=== PATIENT | male | born 1955 | race Caucasian/White ===

== ENCOUNTER 2016-09-07 13:34 | Emergency (ER) | payer OTHER ==
--- NOTE | 2016-09-07 16:37 | ED CLINICAL REPORT ---
Clinical Report - Physicians/Mid Levels [facility] [address] [place] [address] 09/07/2016 13:36 Patient: BOB HALL Time Seen: 13:54 Sep 07 2016. Arrived- By private vehicle. Historian- patient. CPT: ER phys charges level 4 (#[id number]). HISTORY OF PRESENT ILLNESS Chief Complaint: ABDOMINAL PAIN and DIARRHEA. At its maximum, severity described as moderate. When seen in the E.D., severity described as moderate. Modifying factors- worsened by movement. Relieved by rest. It is described as "pain" and it is described as located in the right lower quadrant. 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 No nausea, loss of appetite or vomiting. He has had diarrhea. No recent travel. Similar symptoms previously: None. Recent medical care: Not recently seen/assessed. REVIEW OF SYSTEMS No constipation, black stools, hematemesis, difficulty with urination or pain with urination. No urinary frequency, fever, sore throat, chest pain or difficulty breathing. No cough, joint pain, skin rash, chills or back pain. All systems otherwise negative, except as recorded above. PAST HISTORY Constipation [Active]. Hypertension. Congestive Heart Failure. Sleep Apnea. Kidney failure. Atrial Fibrillation. Diabetes Mellitus. Additional Surgeries: Hernia Repair. Testicle removal. SOCIAL HISTORY Former smoker. ADDITIONAL NOTES The nursing notes have been reviewed. PHYSICAL EXAM Vital Signs: 09/07/2016 13:52 BP: 126/82. HR: 109. RR: 20. O2 saturation: 94%. Temp: 98.9 F. Pain level now: 2/10. Appearance: Alert. No acute distress. Eyes: Eyes normal inspection. ENT: Pharynx normal. Neck: Normal inspection. CVS: Normal heart rate and rhythm. Heart sounds normal. Pulses normal. Respiratory: No respiratory distress. Breath sounds normal. Chest nontender. Abdomen: Tenderness in the right side of the abdomen and right lower quadrant. Bowel sounds normal. Severely obese. Back: Normal inspection. Skin: Skin warm. Normal skin color. No rash. Extremities: Extremities exhibit normal ROM. No lower extremity edema. Neuro: Oriented X 3. No motor deficit. No sensory deficit. Reflexes normal. LABS, X-RAYS, AND EKG Laboratory Tests: UA-Culture if indicated: (FAIZA: 09/07/2016 15:00) ( [facility] 09/07/2016 15:36) Final results Test Result Flag Units (Reference) URINE COLOR YELLOW URINE APPEARANCE CLEAR URINE GLUCOSE NEGATIVE (NEGATIVE) URINE BILIRUBIN NEGATIVE (NEGATIVE) URINE KETONE NEGATIVE (NEGATIVE) URINE SPECIFIC GRAVITY 1.025 (1.010-1.030) URINE PH 6.0 (5.0-8.0) URINE PROTEIN TRACE (NEGATIVE) URINE UROBILINOGEN 1.0 EU/dL (0.2-1.0) URINE NITRITE NEGATIVE (NEGATIVE) URINE BLOOD TRACE-LYSED (NEGATIVE) URINE LEUK ESTERASE NEGATIVE (NEGATIVE) URINE RBC 0-1 rbc/hpf (0-1) URINE WBC 1-3 wbc/hpf (0-1) URINE EPITHELIAL CELLS 1-3 EPI/hpf (0-5) URINE BACTERIA TRACE (<1+) (NONE SEEN) URINE COMMENT CULT NOT INDICATED URINE CULTURES ARE SET-UP BASED ON THE FOLLOWING CRITERIA:POSITIVE NITRITEPOSITIVE LEUKOCYTE ESTERASEGREATER THAN 10 WHITE BLOOD CELLSMODERATE (2+) OR GREATER BACTERIA CBC w Diff: (FAIZA: 09/07/2016 16:00) ( MtgRcvd 09/07/2016 16:20) Final results Test Result Flag Units (Reference) WHITE BLOOD COUNT 10.8 K/uL (4.5-11.5) RED BLOOD COUNT 4.69 M/uL (4.50-5.90) HEMOGLOBIN 12.3 L gm/dL (13.5-17.5) HEMATOCRIT 39.9 L % (41.0-53.0) MEAN CELL VOLUME 85 fL (80-100) MEAN CORPUSCULAR HGB 26 pg (26-34) MEAN CORPUSCULAR HGB CONC 31 g/dL (31-37) RED CELL DISTRIBUTION WIDTH 16.4 H % (11.6-14.8) PLATELET COUNT 207 K/uL (150-400) NEUTROPHIL % 78.0 H % (50-75) LYMPH % 15.0 L % (25-40) MONO % 5.1 % (3-14) EOSINOPHIL % 1.7 % (0-4) BASOPHIL % 0.2 % (0-2) CMP: (FAIZA: 09/07/2016 16:00) ( MsgRcvd 09/07/2016 16:32) Final results Test Result Flag Units (Reference) GLUCOSE 266 H mg/dL (70-110) BUN 21 H mg/dL (7-18) CREATININE 1.2 mg/dL (0.6-1.3) Estimated GFR >60 mL/min Estimated GFR- >60 mL/min Note: Persistent reduction over 3 months in eGFR<60 mL/min/1.73 m2 defines CKD. Patients with eGFR values>=60 mL/min/1.73 m2 may also have CKD if evidence ofpersistent proteinuria. Additional information may be foundat www.kidney.org. SODIUM 138 mmol/L (136-145) POTASSIUM 4.3 mmol/L (3.5-5.1) CHLORIDE 99 mmol/L (98-107) CARBON DIOXIDE 33 H mmol/L (21-32) CALCIUM 8.7 mg/dL (8.5-10.1) TOTAL PROTEIN 7.1 g/dL (6.4-8.2) ALBUMIN 3.0 L g/dL (3.3-5.0) BILIRUBIN, TOTAL 0.6 mg/dL (0.0-1.0) ALKALINE PHOSPHATASE 100 U/L (46-116) AST (SGOT) 11 L U/L (15-37) ALT (SGPT) 16 U/L (12-78) LIPASE 83 U/L (73-393) AMYLASE 37 U/L (25-115) . PROGRESS AND PROCEDURES Course of Care: patient is too large for the CT table at 475 pounds. Discussed the differential diagnosis of abdominal pain in the right abdomen. This included kidney stone appendicitis bowel obstruction aneurysm and possible bowel ischemia. He is aware of the gravity of these diagnoses. He wishes to go home at this time as this pain is resolved. He will follow up at the [facility] if he has any further pain tonight and or tomorrow. The [facility] does have a CT scan of the could handle his weight. Patient/family counseled. Disposition: Discharged. Condition: stable and unchanged. CLINICAL IMPRESSION Acute right lower quadrant abdominal pain of undetermined cause. INSTRUCTIONS Warnings: Further evaluation is necessary. GENERAL WARNINGS: Return or contact your physician immediately if your condition worsens or changes unexpectedly, if not improving as expected, or if other problems arise. Your Current Medications: CONTINUE TAKING THE FOLLOWING MEDICATIONS: Afluzosin*. Apixaban Oral. BuPROPion HCl Oral. Gabapentin Oral. Hydrochlorothiazide Oral. Hydrophilic Polymer External. Insulin Glargine Subcutaneous. Insulin Regular Human Injection. Metoprolol Tartrate Oral. morphine* : 30mg tabs 3x a day. Oxycoodone* : 5mg 3x a day, prn. Simvastatin Oral. Urea Hydrating External. Follow-up: Follow up with your doctor today if not well. Understanding of the discharge instructions verbalized by patient. (Electronically signed by Uri Doss MD 09/11/2016 17:00)
--- NOTE | 2016-09-07 16:37 | ED ORDER SUMMARY ---
..... Patient: BOB HALL OrderSheet [facility] VisitID: [id number] [address] [place] [address] 61y, M Registration Date/Time: 09/07/2016 ORDER SHEET Weight: 213.1 kg (stated) Allergies: Msg GENERAL ORDERS: CT Abd/Pel wo Cont (right abdominal pain r/o stone. ) Urgent (15:09/07/2016 Pavithra TELLO) (Ack 15:06 LMuller) (Cancelled: Unavailable/Mat/Equip. Our CT is too small for pt's girth23:47 Isiah R.N.) UA-Culture if indicated Urgent (15:09/07/2016 Pavithra TELLO) (Ack 15:06 LMuller) (15:18 Isiah R.N.) CBC w Diff Urgent (15:09/07/2016 Pavithra TELLO) (16:00 LMuller) CMP Urgent (15:09/07/2016 Pavithra TELLO) (16:00 LMuller) Amylase Urgent (15:09/07/2016 Pavithra TELLO) (16:00 LMuller) Lipase Urgent (15:09/07/2016 Pavithra TELLO) (16:00 LMuller) MEDICATION ORDERS: IV FLUIDS: IV Saline Lock (15:09/07/2016 Pavithra TELLO) (Cancelled: Other15:53 Pavithra TELLO) ORDER SHEET NOTES: [Electronically signed by Filippo Vizcarra R.N. (23:48 09/07/2016)] [Electronically signed by Uri Doss MD (17:00 09/11/2016)] [Electronically locked/signed by Filippo Vzicarra R.N. (23:48 09/07/2016)]
--- NOTE | 2016-09-07 16:37 | ED CLINICAL REPORT ---
Clinical Report - Physicians/Mid Levels [facility] [address] [place] [address] 09/07/2016 13:36 Patient: BOB HALL Time Seen: 13:54 Sep 07 2016. Arrived- By private vehicle. Historian- patient. CPT: ER phys charges level 4 (#[id number]). HISTORY OF PRESENT ILLNESS Chief Complaint: ABDOMINAL PAIN and DIARRHEA. At its maximum, severity described as moderate. When seen in the E.D., severity described as moderate. Modifying factors- worsened by movement. Relieved by rest. It is described as "pain" and it is described as located in the right lower quadrant. 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 No nausea, loss of appetite or vomiting. He has had diarrhea. No recent travel. Similar symptoms previously: None. Recent medical care: Not recently seen/assessed. REVIEW OF SYSTEMS No constipation, black stools, hematemesis, difficulty with urination or pain with urination. No urinary frequency, fever, sore throat, chest pain or difficulty breathing. No cough, joint pain, skin rash, chills or back pain. All systems otherwise negative, except as recorded above. PAST HISTORY Constipation [Active]. Hypertension. Congestive Heart Failure. Sleep Apnea. Kidney failure. Atrial Fibrillation. Diabetes Mellitus. Additional Surgeries: Hernia Repair. Testicle removal. SOCIAL HISTORY Former smoker. ADDITIONAL NOTES The nursing notes have been reviewed. PHYSICAL EXAM Vital Signs: 09/07/2016 13:52 BP: 126/82. HR: 109. RR: 20. O2 saturation: 94%. Temp: 98.9 F. Pain level now: 2/10. Appearance: Alert. No acute distress. Eyes: Eyes normal inspection. ENT: Pharynx normal. Neck: Normal inspection. CVS: Normal heart rate and rhythm. Heart sounds normal. Pulses normal. Respiratory: No respiratory distress. Breath sounds normal. Chest nontender. Abdomen: Tenderness in the right side of the abdomen and right lower quadrant. Bowel sounds normal. Severely obese. Back: Normal inspection. Skin: Skin warm. Normal skin color. No rash. Extremities: Extremities exhibit normal ROM. No lower extremity edema. Neuro: Oriented X 3. No motor deficit. No sensory deficit. Reflexes normal. LABS, X-RAYS, AND EKG Laboratory Tests: UA-Culture if indicated: (FAIZA: 09/07/2016 15:00) ( [facility] 09/07/2016 15:36) Final results Test Result Flag Units (Reference) URINE COLOR YELLOW URINE APPEARANCE CLEAR URINE GLUCOSE NEGATIVE (NEGATIVE) URINE BILIRUBIN NEGATIVE (NEGATIVE) URINE KETONE NEGATIVE (NEGATIVE) URINE SPECIFIC GRAVITY 1.025 (1.010-1.030) URINE PH 6.0 (5.0-8.0) URINE PROTEIN TRACE (NEGATIVE) URINE UROBILINOGEN 1.0 EU/dL (0.2-1.0) URINE NITRITE NEGATIVE (NEGATIVE) URINE BLOOD TRACE-LYSED (NEGATIVE) URINE LEUK ESTERASE NEGATIVE (NEGATIVE) URINE RBC 0-1 rbc/hpf (0-1) URINE WBC 1-3 wbc/hpf (0-1) URINE EPITHELIAL CELLS 1-3 EPI/hpf (0-5) URINE BACTERIA TRACE (<1+) (NONE SEEN) URINE COMMENT CULT NOT INDICATED URINE CULTURES ARE SET-UP BASED ON THE FOLLOWING CRITERIA:POSITIVE NITRITEPOSITIVE LEUKOCYTE ESTERASEGREATER THAN 10 WHITE BLOOD CELLSMODERATE (2+) OR GREATER BACTERIA CBC w Diff: (FAIZA: 09/07/2016 16:00) ( VtgRcvd 09/07/2016 16:20) Final results Test Result Flag Units (Reference) WHITE BLOOD COUNT 10.8 K/uL (4.5-11.5) RED BLOOD COUNT 4.69 M/uL (4.50-5.90) HEMOGLOBIN 12.3 L gm/dL (13.5-17.5) HEMATOCRIT 39.9 L % (41.0-53.0) MEAN CELL VOLUME 85 fL (80-100) MEAN CORPUSCULAR HGB 26 pg (26-34) MEAN CORPUSCULAR HGB CONC 31 g/dL (31-37) RED CELL DISTRIBUTION WIDTH 16.4 H % (11.6-14.8) PLATELET COUNT 207 K/uL (150-400) NEUTROPHIL % 78.0 H % (50-75) LYMPH % 15.0 L % (25-40) MONO % 5.1 % (3-14) EOSINOPHIL % 1.7 % (0-4) BASOPHIL % 0.2 % (0-2) CMP: (FAIZA: 09/07/2016 16:00) ( MsgRcvd 09/07/2016 16:32) Final results Test Result Flag Units (Reference) GLUCOSE 266 H mg/dL (70-110) BUN 21 H mg/dL (7-18) CREATININE 1.2 mg/dL (0.6-1.3) Estimated GFR >60 mL/min Estimated GFR- >60 mL/min Note: Persistent reduction over 3 months in eGFR<60 mL/min/1.73 m2 defines CKD. Patients with eGFR values>=60 mL/min/1.73 m2 may also have CKD if evidence ofpersistent proteinuria. Additional information may be foundat www.kidney.org. SODIUM 138 mmol/L (136-145) POTASSIUM 4.3 mmol/L (3.5-5.1) CHLORIDE 99 mmol/L (98-107) CARBON DIOXIDE 33 H mmol/L (21-32) CALCIUM 8.7 mg/dL (8.5-10.1) TOTAL PROTEIN 7.1 g/dL (6.4-8.2) ALBUMIN 3.0 L g/dL (3.3-5.0) BILIRUBIN, TOTAL 0.6 mg/dL (0.0-1.0) ALKALINE PHOSPHATASE 100 U/L (46-116) AST (SGOT) 11 L U/L (15-37) ALT (SGPT) 16 U/L (12-78) LIPASE 83 U/L (73-393) AMYLASE 37 U/L (25-115) . PROGRESS AND PROCEDURES Course of Care: patient is too large for the CT table at 475 pounds. Discussed the differential diagnosis of abdominal pain in the right abdomen. This included kidney stone appendicitis bowel obstruction aneurysm and possible bowel ischemia. He is aware of the gravity of these diagnoses. He wishes to go home at this time as this pain is resolved. He will follow up at the [facility] if he has any further pain tonight and or tomorrow. The [facility] does have a CT scan of the could handle his weight. Patient/family counseled. Disposition: Discharged. Condition: stable and unchanged. CLINICAL IMPRESSION Acute right lower quadrant abdominal pain of undetermined cause. INSTRUCTIONS Warnings: Further evaluation is necessary. GENERAL WARNINGS: Return or contact your physician immediately if your condition worsens or changes unexpectedly, if not improving as expected, or if other problems arise. Your Current Medications: CONTINUE TAKING THE FOLLOWING MEDICATIONS: Afluzosin*. Apixaban Oral. BuPROPion HCl Oral. Gabapentin Oral. Hydrochlorothiazide Oral. Hydrophilic Polymer External. Insulin Glargine Subcutaneous. Insulin Regular Human Injection. Metoprolol Tartrate Oral. morphine* : 30mg tabs 3x a day. Oxycoodone* : 5mg 3x a day, prn. Simvastatin Oral. Urea Hydrating External. Follow-up: Follow up with your doctor today if not well. Understanding of the discharge instructions verbalized by patient. (Electronically signed by Uri Doss MD 09/11/2016 17:00)
--- NOTE | 2016-09-07 16:37 | ED NURSING NOTES ---
Clinical Report - Nurses [facility] [address] [place] [address] 09/07/2016 13:36 Patient: BOB HALL TRIAGE Triage time 13:50 Sep 07 2016. Acuity: LEVEL 3. Chief Complaint: DIARRHEA and ((R) side pain). Alert. LALA COMA SCORE: Lala Coma Scale: 15- eyes open spontaneously (4); best verbal response- oriented x 4 (5); best motor response- obeys commands (6). --14:11 Filippo Vizcarra R.N. 13:52 09/07/16. BP: 126/82. HR: 109. RR: 20. O2 saturation: 94% on room air. Temp: 98.9 F. Pain level now: 10. Additional comments: (R)-sided pain. --14:11 Filippo Vizcarra R.N. Weight: 213.1 kg stated. Height/Length: 74 inches Per Patient. BMI: 60.4. --13:52 Filippo Vizcarra R.N. Medications Afluzosin. --13:56 Filippo Vizcarra R.N. Apixaban Oral. --13:56 Filippo Vizcarra R.N. BuPROPion HCl Oral. --13:57 Filippo Vizcarra R.N. Gabapentin Oral. Hydrochlorothiazide Oral. Hydrophilic Polymer External. --13:58 Filippo Vizcarra R.N. Insulin Regular Human Injection. --13:59 Filippo Vizcarra R.N. Insulin Glargine Subcutaneous. --13:59 Filippo Vizcarra R.N. Metoprolol Tartrate Oral. --13:59 Filippo Vizcarra R.N. Simvastatin Oral. --14:00 Filippo Vizcarra R.N. Urea Hydrating External. --14:01 Filippo Vizcarra R.N. morphine 30mg tabs, 3x a day. --14:04 Filippo Vizcarra R.N. Oxycoodone 5mg, 3x a day as needed. --14:04 Filippo Vizcarra R.N. The following entry was struck and corrected by Filippo Vizcarra R.N., 14:04 (09/07/16) Reason for correction - other(correction). <<STRICKEN ENTRY-- Afluzosin. --13:56 Filippo Vizcarra R.N. --END STRIKE>>. Allergies Msg. Definite Moderate (Tachycardia) --13:54 Filippo Vizcarra R.N. History Arrived by private vehicle. Historian: patient. Unaccompanied. ( Pain along the (R) side.). Onset. (about 5 days). He has had diarrhea and abdominal pain. Last oral intake by patient was (2 hours ago). PAST MEDICAL HX: Immunizations: up-to-date. SOCIAL HX: Former smoker, end date 1986. No recent travel. ABUSE ASSESSMENT: No report of abuse. FALL RISK ASSESSMENT: Fall risk assessment completed. No fall risk identified. NUTRITIONAL RISK ASSESSMENT: The nutritional risk assessment revealed no deficiencies. FUNCTIONAL ASSESSMENT: Functional assessment: no impairments noted. LEARNING NEEDS ASSESSMENT: The learning needs assessment revealed no barriers. SKIN INTEGRITY ASSESSMENT: Skin integrity risk assessment completed. No skin integrity risk identified. --14:11 Filippo Vizcarra R.N. PROBLEMS: Constipation [Active]. --14:06 Filippo Vizcarra R.N. Obesity. Rectal Bleed. Hypertension. Congestive Heart Failure. Sleep Apnea. Atrial Fibrillation. Diabetes Mellitus. --14:06 Filippo Vizcarra R.N. ADDITIONAL SURGERIES: Hernia Repair. Testicle removal. --14:06 Filippo Vizcarra R.N. Interventions ID and allergy band on patient. To treatment room. --14:11 Filippo Vizcarra R.N. PHYSICAL ASSESSMENT Ambulatory to room. GENERAL / NEURO / PSYCH: Oriented X 4. Appears in pain. Decreased awareness. HEENT: Mucous membranes are pink. RESPIRATORY: Respirations not labored. CVS: Normal sinus rhythm noted. GI / : Abdomen soft and nontender. SKIN: Skin is warm and dry. --14:12 Filippo Vizcarra R.N. NURSING PROGRESS NOTES Patient gowned. Reassurance given. Patient identifiers checked. Call light placed in reach. Side rails up x 1. Bed placed in lowest position. Brakes of bed on. Patient ready for evaluation- chart flagged and ED physician notified. --14:13 Filippo Vizcarra R.N. 15:15 09/07/16. Patient ID band checked for patient name, birthdate and medical record number: patient confirmed. Instructions provided to collect clean catch urine and patient verbalized understanding. Clean catch urine collected with return of yellow-colored clear urine; odor is normal; sample sent to lab for urinalysis and culture. Specimen labeled in the presence of the patient. --15:18 Filippo Vizcarra R.N. <<STRICKEN ENTRY-- 16:30 09/07/16. BP: 103/63. HR: 57. RR: 16. O2 saturation: 100%. Pain level now: 09/24. --16:34 Filippo Vizcarra R.N. --END STRIKE>> Correction. --20:16 Filippo Vizcarra R.N. <<STRICKEN ENTRY-- 16:30 09/07/16. BP: 103/63. HR: 57. RR: 16. O2 saturation: 100%. Pain level now: 09/24. --16:40 Filippo Vizcarra R.N. --END STRIKE>> Correction. --16:41 Filippo Vizcarra R.N. DISPOSITION / DISCHARGE Departure time: 1645. --20:11 Filippo Vizcarra R.N. 16:40 09/07/16. BP: 132/77. HR: 67. RR: 16. O2 saturation: 98% on room air. Temp: 98.9 F (oral). Pain level now: 12/22. --20:11 Filippo Vizcarra R.N. 16:45. Condition at departure: improved. Fall risk assessment completed. Risk factors identified include patient impairment of mobility. Fall interventions initiated; Morbid Obesity driving an electric scooter. No learning barriers present. Discharge instructions provided and reviewed with the patient. Reviewed referral to family practice for followup (Encouraged to go to [place] ED where they have a bigger CT than we do and he can fit.). Patient verbalized understanding. Written instructions provided in Swedish. The patient was discharged by the physician. He was accompanied by family and discharged ([facility]). He left the Emergency Department via private vehicle and (electric scooter/POV). Patient driving. --20:15 Filippo Vizcarra R.N. Locked/Released at 09/07/2016 23:48 by Filippo Vizcarra R.N.
--- NOTE | 2016-09-07 16:37 | ED NURSING NOTES ---
Clinical Report - Nurses [facility] [address] [place] [address] 09/07/2016 13:36 Patient: BOB HALL TRIAGE Triage time 13:50 Sep 07 2016. Acuity: LEVEL 3. Chief Complaint: DIARRHEA and ((R) side pain). Alert. LALA COMA SCORE: Lala Coma Scale: 15- eyes open spontaneously (4); best verbal response- oriented x 4 (5); best motor response- obeys commands (6). --14:11 Filippo Vizcarra R.N. 13:52 09/07/16. BP: 126/82. HR: 109. RR: 20. O2 saturation: 94% on room air. Temp: 98.9 F. Pain level now: 10. Additional comments: (R)-sided pain. --14:11 Filippo Vizcarra R.N. Weight: 213.1 kg stated. Height/Length: 74 inches Per Patient. BMI: 60.4. --13:52 Filippo Vizcarra R.N. Medications Afluzosin. --13:56 Filippo Vizcarra R.N. Apixaban Oral. --13:56 Filippo Vizcarra R.N. BuPROPion HCl Oral. --13:57 Filippo Vizcarra R.N. Gabapentin Oral. Hydrochlorothiazide Oral. Hydrophilic Polymer External. --13:58 Filippo Vizcarra R.N. Insulin Regular Human Injection. --13:59 Filippo Vizcarra R.N. Insulin Glargine Subcutaneous. --13:59 Filippo Vizcarra R.N. Metoprolol Tartrate Oral. --13:59 Filippo Vizcarra R.N. Simvastatin Oral. --14:00 Filippo Vizcarra R.N. Urea Hydrating External. --14:01 Filippo Vizcarra R.N. morphine 30mg tabs, 3x a day. --14:04 Filippo Vizcarra R.N. Oxycoodone 5mg, 3x a day as needed. --14:04 Filippo Vizcarra R.N. The following entry was struck and corrected by Filippo Vizcarra R.N., 14:04 (09/07/16) Reason for correction - other(correction). <<STRICKEN ENTRY-- Afluzosin. --13:56 Filippo Vizcarra R.N. --END STRIKE>>. Allergies Msg. Definite Moderate (Tachycardia) --13:54 Filippo Vizcarra R.N. History Arrived by private vehicle. Historian: patient. Unaccompanied. ( Pain along the (R) side.). Onset. (about 5 days). He has had diarrhea and abdominal pain. Last oral intake by patient was (2 hours ago). PAST MEDICAL HX: Immunizations: up-to-date. SOCIAL HX: Former smoker, end date 1986. No recent travel. ABUSE ASSESSMENT: No report of abuse. FALL RISK ASSESSMENT: Fall risk assessment completed. No fall risk identified. NUTRITIONAL RISK ASSESSMENT: The nutritional risk assessment revealed no deficiencies. FUNCTIONAL ASSESSMENT: Functional assessment: no impairments noted. LEARNING NEEDS ASSESSMENT: The learning needs assessment revealed no barriers. SKIN INTEGRITY ASSESSMENT: Skin integrity risk assessment completed. No skin integrity risk identified. --14:11 Filippo Vizcarra R.N. PROBLEMS: Constipation [Active]. --14:06 Filippo Vizcarra R.N. Obesity. Rectal Bleed. Hypertension. Congestive Heart Failure. Sleep Apnea. Atrial Fibrillation. Diabetes Mellitus. --14:06 Filippo Vizcarra R.N. ADDITIONAL SURGERIES: Hernia Repair. Testicle removal. --14:06 Filippo Vizcarra R.N. Interventions ID and allergy band on patient. To treatment room. --14:11 Filippo Vizcarra R.N. PHYSICAL ASSESSMENT Ambulatory to room. GENERAL / NEURO / PSYCH: Oriented X 4. Appears in pain. Decreased awareness. HEENT: Mucous membranes are pink. RESPIRATORY: Respirations not labored. CVS: Normal sinus rhythm noted. GI / : Abdomen soft and nontender. SKIN: Skin is warm and dry. --14:12 Filippo Vizcarra R.N. NURSING PROGRESS NOTES Patient gowned. Reassurance given. Patient identifiers checked. Call light placed in reach. Side rails up x 1. Bed placed in lowest position. Brakes of bed on. Patient ready for evaluation- chart flagged and ED physician notified. --14:13 Filippo Vizcarra R.N. 15:15 09/07/16. Patient ID band checked for patient name, birthdate and medical record number: patient confirmed. Instructions provided to collect clean catch urine and patient verbalized understanding. Clean catch urine collected with return of yellow-colored clear urine; odor is normal; sample sent to lab for urinalysis and culture. Specimen labeled in the presence of the patient. --15:18 Filippo Vizcarra R.N. <<STRICKEN ENTRY-- 16:30 09/07/16. BP: 103/63. HR: 57. RR: 16. O2 saturation: 100%. Pain level now: 09/24. --16:34 Filippo Vizcarra R.N. --END STRIKE>> Correction. --20:16 Filippo Vizcarra R.N. <<STRICKEN ENTRY-- 16:30 09/07/16. BP: 103/63. HR: 57. RR: 16. O2 saturation: 100%. Pain level now: 09/24. --16:40 Filippo Vizcarra R.N. --END STRIKE>> Correction. --16:41 Filippo Vizcarra R.N. DISPOSITION / DISCHARGE Departure time: 1645. --20:11 Filippo Vizcarra R.N. 16:40 09/07/16. BP: 132/77. HR: 67. RR: 16. O2 saturation: 98% on room air. Temp: 98.9 F (oral). Pain level now: 12/22. --20:11 Filippo Vizcarra R.N. 16:45. Condition at departure: improved. Fall risk assessment completed. Risk factors identified include patient impairment of mobility. Fall interventions initiated; Morbid Obesity driving an electric scooter. No learning barriers present. Discharge instructions provided and reviewed with the patient. Reviewed referral to family practice for followup (Encouraged to go to [facility] where they have a bigger CT than we do and he can fit.). Patient verbalized understanding. Written instructions provided in Turkish. The patient was discharged by the physician. He was accompanied by family and discharged ([facility]). He left the Emergency Department via private vehicle and (electric scooter/POV). Patient driving. --20:15 Filippo Vizcarra R.N. Locked/Released at 09/07/2016 23:48 by Filippo Vizcarra R.N.
--- NOTE | 2016-09-07 16:37 | ED ORDER SUMMARY ---
..... Patient: BOB HALL OrderSheet [facility] VisitID: [id number] [address] [place] [address] 61y, M Registration Date/Time: 09/07/2016 ORDER SHEET Weight: 213.1 kg (stated) Allergies: Msg GENERAL ORDERS: CT Abd/Pel wo Cont (right abdominal pain r/o stone. ) Urgent (15:09/07/2016 Pavithra TELLO) (Ack 15:06 LMuller) (Cancelled: Unavailable/Mat/Equip. Our CT is too small for pt's girth23:47 Isiah R.N.) UA-Culture if indicated Urgent (15:09/07/2016 Pavithra TELLO) (Ack 15:06 LMuller) (15:18 Isiah R.N.) CBC w Diff Urgent (15:09/07/2016 Pavithra TELLO) (16:00 LMuller) CMP Urgent (15:09/07/2016 Pavithra TELLO) (16:00 LMuller) Amylase Urgent (15:09/07/2016 Pavithra TELLO) (16:00 LMuller) Lipase Urgent (15:09/07/2016 Pavithra TELLO) (16:00 LMuller) MEDICATION ORDERS: IV FLUIDS: IV Saline Lock (15:09/07/2016 Pavithra TELLO) (Cancelled: Other15:53 Pavithra TELLO) ORDER SHEET NOTES: [Electronically signed by Filippo Vizcarra R.N. (23:48 09/07/2016)] [Electronically signed by Uri Doss MD (17:00 09/11/2016)] [Electronically locked/signed by Filippo Vizcarra R.N. (23:48 09/07/2016)]
--- NOTE | 2016-09-11 17:00 | ED MED RECONCILIATION SUMMARY ---
Patient: BOB HALL Medication Reconciliation Report [facility] VisitID: [id number] [address] [place] [address] 61y, M Registration Date/Time: 09/07/2016 Weight: 213.1 kg Height/Length: 74 in. BMI: 60.4 ALLERGIES: Msg The patient's Home Medications are listed below: CONTINUE TAKING THE FOLLOWING MEDICATIONS: Afluzosin Apixaban Oral BuPROPion HCl Oral Gabapentin Oral Hydrochlorothiazide Oral Hydrophilic Polymer External Insulin Glargine Subcutaneous Insulin Regular Human Injection Metoprolol Tartrate Oral morphine 30mg tabs, 3x a day Oxycoodone 5mg, 3x a day Simvastatin Oral Urea Hydrating External The source(s) of the original Home Medication information: Not obtained. The following Medications were given to the patient in the Emergency Department: None. The following Medications were prescribed to the patient: None.
--- NOTE | 2016-09-11 17:00 | ED MED RECONCILIATION SUMMARY ---
Patient: BOB HALL Medication Reconciliation Report [facility] VisitID: [id number] [address] [place] [address] 61y, M Registration Date/Time: 09/07/2016 Weight: 213.1 kg Height/Length: 74 in. BMI: 60.4 ALLERGIES: Msg The patient's Home Medications are listed below: CONTINUE TAKING THE FOLLOWING MEDICATIONS: Afluzosin Apixaban Oral BuPROPion HCl Oral Gabapentin Oral Hydrochlorothiazide Oral Hydrophilic Polymer External Insulin Glargine Subcutaneous Insulin Regular Human Injection Metoprolol Tartrate Oral morphine 30mg tabs, 3x a day Oxycoodone 5mg, 3x a day Simvastatin Oral Urea Hydrating External The source(s) of the original Home Medication information: Not obtained. The following Medications were given to the patient in the Emergency Department: None. The following Medications were prescribed to the patient: None.
--- NOTE | 2016-09-11 17:00 | ED DISCHARGE INSTRUCTIONS ---
Patient: BOB HALL General Instructions [facility] VisitID: [id number] [address] [place] [address] 61y, M Registration Date/Time: 09/07/2016 Acute right lower quadrant abdominal pain of undetermined cause. INSTRUCTIONS Warnings: Further evaluation is necessary. GENERAL WARNINGS: Return or contact your physician immediately if your condition worsens or changes unexpectedly, if not improving as expected, or if other problems arise. Your Current Medications: CONTINUE TAKING THE FOLLOWING MEDICATIONS: Afluzosin*. Apixaban Oral. BuPROPion HCl Oral. Gabapentin Oral. Hydrochlorothiazide Oral. Hydrophilic Polymer External. Insulin Glargine Subcutaneous. Insulin Regular Human Injection. Metoprolol Tartrate Oral. morphine* : 30mg tabs 3x a day. Oxycoodone* : 5mg 3x a day, prn. Simvastatin Oral. Urea Hydrating External. Follow-up: Follow up with your doctor today if not well. Understanding of the discharge instructions verbalized by patient. ADDITIONAL INFORMATION Abdominal Pain,Uncertain Cause [Male] Based on your visit today, the exact cause of your abdominalpain is not clear. Your exam and tests do not indicate a dangerous cause at this time. However, the signs of a serious problem may take more time to appear. Although your evaluation was reassuring today, sometimes early in the course of many conditions, exam and lab tests can appear normal. Therefore, it is important for you to watch for any new symptoms or worsening of your condition. Causes It may not be obvious what caused your symptoms. Pay attention to things that do seem to make your symptoms worse or better and discuss this with your doctor when you follow up. Diagnosis The evaluation of abdominal pain in the emergency department may onlyrequire an exam by the doctor or it may include blood, urine or imaging studies, depending on many factors. Sometimes exams and tests can identify a cause but in many cases, a clear cause is not found. Further testing at follow up visits may help to suggest a clear diagnosis. Home Care Rest as much as possible until your next exam. Try to avoid any medications (unless otherwise directed by your doctor), foods, activities, or other factors that you may have contributed to your symptoms. Try to eat foods that you know that you have tolerated well in the past. Certain diets may be recommended for some conditions that cause abdominal pain. However, since the cause of your symptoms may not be clear, discuss your diet more with your primary care provider or specialist for further recommendations. Eating several small meals per day as opposed to 2 or 3 larger meals may help. Monitor closely for anything that may make your symptoms worse or better. Pay close attention to symptoms below that may indicate worsening of your condition. Follow Up and Precautions See your doctoras instructed or sooneror if your symptoms are not improving.In some cases, you may need more testing. When to Seek Medical Attention Contact your doctor or see medical attention ifany of the following occur: Pain is becoming worse You are unable to take your medications due to excessive vomiting Swelling of the abdomen Fever of 100.4F (38C) or higher, or as directed by your health care provider Blood in vomit or bowel movements (dark red or black color) Jaundice (yellow color of eyes and skin) New onset of weakness, dizziness or fainting New onset of chest, arm, back, neck or jaw pain You have been given the following additional information: Abdominal Pain, Unknown Cause, (Male) (Electronically signed by Uri Doss MD 09/11/2016 17:00)
--- NOTE | 2016-09-11 17:00 | ED MAR SUMMARY ---
..... Medication Administration Record [facility] [address] [place] [address] Patient: BOB HALL Mellisa Visit ID: [id number] 61y, M Weight: 213.1 kg Height/Length: 74 in BMI: 60.4 ALLERGIES: Msg
--- NOTE | 2016-09-11 17:00 | ED MAR SUMMARY ---
..... Medication Administration Record [facility] [address] [place] [address] Patient: BOB HALL Mellisa Visit ID: [id number] 61y, M Weight: 213.1 kg Height/Length: 74 in BMI: 60.4 ALLERGIES: Msg
[2017-01-13] MEDS ORDERED: ALFUZOSIN HCL E10 MG (18:47)
[2017-01-13] MEDS ORDERED: CYMBALTA30 MG PO (18:48)
[2017-01-13] MEDS ORDERED: ELIQUIS5 MG PO (18:49)
[2017-01-13] MEDS ORDERED: GABAPENTIN600 MG PO (18:50)
[2017-01-13] MEDS ORDERED: LANTUS SOL100 UNITS/ SC (18:50)
[2017-01-13] MEDS ORDERED: LISINOPRIL/HYDR1 TA1 PO (18:51)
[2017-01-13] MEDS ORDERED: METOPROLOL TART25 MG PO (18:52)
[2017-01-13] MEDS ORDERED: MORPHINE SULFAT30 M2 PO (18:53)
[2017-01-13] MEDS ORDERED: OMEGA 31000 MG PO (18:53)
[2017-01-13] MEDS ORDERED: OXYCODONE HCL5 MG PO (18:54)
[2017-01-13] MEDS ORDERED: SIMVASTATIN40 MG PO (18:55)
[2017-01-13] MEDS ORDERED: HUMALIN R100 UNITS/ SC (18:55)
[2017-01-13] MEDS ORDERED: FLONASE AL50 MCG/ACT (18:56)
[2017-01-13] MEDS ORDERED: FEXOFENADINE H180 MG PO (18:57)
== END 2016-09-07 16:45 | disposition home or self-care (01) ==
LOC: ED SRH 13:34
DX: R10.31 Right lower quadrant pain (principal); R19.7 Diarrhea, unspecified; I11.0 Hypertensive heart disease with heart failure; I50.9 Heart failure, unspecified; I48.91 Unspecified atrial fibrillation; E11.9 Type 2 diabetes mellitus without complications; Z87.891 Personal history of nicotine dependence; Z79.4 Long term (current) use of insulin
CPT/HCPCS: 90004; 90074; 90100; 92235; 92530; 95059

== ENCOUNTER 2017-02-21 07:11 | Day surgery (SDC) | payer OTHER ==
[~2017-02-21] VITALS: Ht 186.7 cm; Wt 207.0 kg
[~2017-02-21 07:11] MED LIST: ALFUZOSIN HCL E10 MG; BUPROPION HCL150 M3 PO; CYMBALTA30 MG PO; ELIQUIS5 MG PO; FEXOFENADINE H180 MG PO; FLONASE AL50 MCG/ACT; GABAPENTIN600 MG PO; HUMALIN R100 UNITS/ SC; LANTUS SOL100 UNITS/ SC; LISINOPRIL/HYDR1 TA1 PO; METOPROLOL TART25 MG PO; MORPHINE SULFAT30 M2 PO; OMEGA 31000 MG PO; OXYCODONE HCL5 MG PO; SIMVASTATIN40 MG PO; TURMERIC CURCUMIN PO
--- NOTE | 2017-02-21 12:34 | Provider's Discharge Care Plan ---
Problem, Goal, Plan Problem List 1. Hematochezia
--- NOTE | 2017-02-21 12:34 | Provider's Discharge Care Plan ---
Problem, Goal, Plan Problem List 1. Hematochezia
[2017-02-21 14:50] VITALS: BP 153/84
--- NOTE | 2017-02-21 16:02 | DIAGNOSTIC IMAGING REPORT ---
PROCEDURE: XR BARIUM ENEMA W/AIR CONTRAST INDICATION: Incomplete colonoscopy. Hemoccult positive stools. TECHNIQUE: Double contrast study. Fluoroscopy time, 6.3 minutes; 4270.49 mGy. COMPARISON: None. FINDINGS: Study is partially limited due to body habitus (patient unable to turn prone). Allowing for this, contrast was advanced to the cecum. No constricting or polypoid lesions are identified. There is a small amount of residual stool content. IMPRESSION: 1. Study partially limited due to body habitus. 2. Negative barium enema. 3. Findings discussed with the patient and called to Dr. Diego Huertas.
== END 2017-02-21 14:57 | disposition home or self-care (01) ==
LOC: OR SRH 07:11 → OB SRH 07:12 → OR SRH 09:00
PROVIDERS: Surgery
PROC: 0DJD8ZZ Inspection of Lower Intestinal Tract, Via Natural or Artificial Opening Endoscopic (ICD-10-PCS; principal; 2017-02-21 09:00)
DX: K57.30 Diverticulosis of large intestine without perforation or abscess without bleeding (principal); K63.89 Other specified diseases of intestine; E66.9 Obesity, unspecified; E11.9 Type 2 diabetes mellitus without complications; I48.91 Unspecified atrial fibrillation; Z68.43 Body mass index [BMI] 50.0-59.9, adult; I10 Essential (primary) hypertension; Z79.4 Long term (current) use of insulin; Z79.01 Long term (current) use of anticoagulants